=== PATIENT | female | born 1980 | race Caucasian/White ===

== ENCOUNTER 2017-09-14 21:05 | Emergency (ER) | payer OTHER, MEDICAID ==
[~2017-09-14] VITALS: Ht 160 cm; Wt 63.5 kg
[~2017-09-14 21:05] MED LIST: BACTRIM DS TAB1 EACH PO; BUDEPRION SR150 MG; CELEXA 20 MG TA20 M1 PO; COMPAZINE10 MG PO; CYCLOBENZAPRINE5 MG PO; DAPTOMYCIN IV; DOXEPIN 10 MG C10 MG PO; DOXYCYCLINE 10100 MG PO; FLEXERIL PO; FLOMAX0.4 MG PO; IBUPROFEN 800800 M1 PO; LAMICTAL 25 MG25 M1; NORCO 5-325 TA1 EAC1 PO; NORCO 5-325 TA1 EACH PO; ONDANSETRON HCL4 M2 PO; PERCOCET 5-3251 EACH PO; PROTONIX40 MG PO; ROBAXIN500 MG PO; TORADOL 10 MG T10 MG PO; VALTREX1000 MG; VICODIN 5-5001 EACH PO; WELLBUTRIN SR150 MG PO; XANAX 0.5 MG0.5 MG PO; ZANTAC 150MG T150 MG PO; [UNRECOGNIZED DRUG - REMARK]
[2017-09-14 21:10] VITALS: BP 125/68
[2017-09-14] MEDS ORDERED: SYMBICORT160 MCG/4. (21:16)
[2017-09-14] MEDS ORDERED: VENTOLIN HFA 1818 GM (21:17)
[2017-09-14] MEDS ORDERED: BACTRIM DS TAB1 EAC1 PO (21:23)
== END 2017-09-14 21:49 | disposition home or self-care (01) ==
LOC: M.ERS 21:05
DX: L03.312 Cellulitis of back [any part except buttock and flank] (principal); J45.909 Unspecified asthma, uncomplicated; F31.9 Bipolar disorder, unspecified; Z86.14 Personal history of Methicillin resistant Staphylococcus aureus infection; Z88.6 Allergy status to analgesic agent